=== PATIENT | male | born 1965 | race Caucasian/White ===

== ENCOUNTER 2018-07-20 09:31 | Emergency (ER) | payer SELFPAY ==
[2018-07-20 10:23] VITALS: BP 153/90
== END 2018-07-20 10:23 | disposition home or self-care (01) ==
LOC: ED 09:31
DX: R07.89 Other chest pain (principal); V49.9XXA Car occupant (driver) (passenger) injured in unspecified traffic accident, initial encounter; Y93.89 Activity, other specified; Y92.488 Other paved roadways as the place of occurrence of the external cause; Y99.8 Other external cause status